=== PATIENT | female | born 1955 | race Caucasian/White ===

== ENCOUNTER 2019-01-31 13:31 | Outpatient (CLI) | payer BC ==
--- NOTE | 2019-01-31 14:18 | MMO ---
Bilateral MAMMO Bilat Screen [facility]. CLINICAL HISTORY: Patient is 63 years old and is seen for screening. The patient has no family history of breast cancer. The patient has no personal history of cancer. VIEWS: The views performed were: bilateral craniocaudal with tomosynthesis and bilateral mediolateral oblique with tomosynthesis. FILMS COMPARED: The present examination has been compared to prior imaging studies performed at [facility] on 01/30/1999, 07/23/2003, 02/22/2008 and 12/20/2014. MAMMOGRAM FINDINGS: There are scattered fibroglandular densities. There are no suspicious masses, suspicious calcifications, or new areas of architectural distortion. IMPRESSION: THERE IS NO MAMMOGRAPHIC EVIDENCE OF MALIGNANCY. A ROUTINE FOLLOW-UP MAMMOGRAM IN 1 YEAR IS RECOMMENDED. THE RESULTS OF THIS EXAM WERE SENT TO THE PATIENT. ACR BI-RADS Category 1 - Negative MAMMOGRAPHY NOTE: 1. A negative mammogram report should not delay a biopsy if a dominant of clinically suspicious mass is present. 2. Approximately 10% to 15% of breast cancers are not detected by mammography. 3. Adenosis and dense breasts may obscure an underlying neoplasm.
== END 2019-01-31 13:32 | disposition home or self-care (01) ==
LOC: BICMAMMO 13:31
PROVIDERS: ATTEND Family Medicine
DX: Z12.31 Encounter for screening mammogram for malignant neoplasm of breast (principal)
CPT/HCPCS: 77063; 77067

== ENCOUNTER 2020-04-09 13:18 | Outpatient (CLI) | payer BC ==
--- NOTE | 2020-04-09 13:52 | RAD ---
EXAM: XR Cerv Sp Ap Lat STANDARD DATE: 04/09/2020 12:00 AM INDICATION: Postoperative cervical spine COMPARISON: None. FINDING: There is an ACDF spanning C5-C7. There is an intervertebral disc cage at C4-5. There is sli ght anterior translation of C3 on C4 and C7 on T1. There is solid osseous incorporation of interbody bone graft of C5-6 and C6-7. No appreciable incorporation seen involving the ACDF site at C 4-5. Lateral masses are symmetric. Lung apices are clear. IMPRESSION:Postoperative cervical spine with moderate to severe cervical spondylosis.
== END 2020-04-09 13:19 | disposition home or self-care (01) ==
LOC: TBSIIMAG 13:18
PROVIDERS: ATTEND Neurological Surgery
DX: M47.22 Other spondylosis with radiculopathy, cervical region (principal); Z98.1 Arthrodesis status
CPT/HCPCS: 72040

== ENCOUNTER 2023-01-17 09:49 | Outpatient (CLI) | payer MEDICARE | END 2023-01-17 09:50 | disposition home or self-care (01) | LOC: BICMAMMO 09:49 | PROVIDERS: ATTEND Student in an Organized Health Care Education/Training Program | DX: Z12.31 Encounter for screening mammogram for malignant neoplasm of breast (principal) | CPT/HCPCS: 77063; 77067 ==